=== PATIENT | female | born 1955 | race Caucasian/White ===

== ENCOUNTER 2019-12-17 09:28 | Day surgery (SDC) | payer MEDICARE, OTHER ==
[~2019-12-17 09:28] MED LIST: Sodium Chloride 0.9% 10 ML Syringe FLUSH PRN
[2019-12-17] MEDS ORDERED: Propofol 200 MG/20 ML SDV ONE ×2 (10:04→10:43)
[2019-12-17] MEDS: Lactated Ringers 1,000 ML IV SCH (10:26)
[2019-12-17] MEDS ORDERED: Lidocaine 2% 100 MG/5 ML Syringe ONE (10:43)
--- NOTE | 2019-12-17 10:49 | PCM.PN ---
- General Info Date of Service: 12/17/19 - Review of Systems Systems Review Comment:: 64-year-old female with history of epigastric pain and history of polyps here for EGD and colonoscopy. She is medically stable to proceed today. Her recent history and physical is reviewed. No significant changes are noted. I have discussed the proposed EGD and colonoscopy with the patient. Risks discussed. She agrees to proceed. - Patient Data Vitals - Most Recent: Last Vital Signs Temp 98.8 F 12/17/19 09:59 Pulse 71 12/17/19 09:59 Resp 18 12/17/19 09:59 BP 134/79 12/17/19 09:59 Pulse Ox 98 12/17/19 09:59 Weight - Most Recent: 74.843 kg Med Orders - Current: Current Medications Lactated Ringer's (Ringers, Lactated) 1,000 mls @ 125 mls/hr IV ASDIRECTED AILYN Last Admin: 12/17/19 10:26 Dose: 125 mls/hr Documented by: Sodium Chloride (Saline Flush) 10 ml FLUSH ASDIRECTED PRN PRN Reason: Keep Vein Open Discontinued Medications Propofol (Diprivan 20 Ml) Confirm Administered Dose 400 mg .ROUTE .STK-MED ONE Stop: 12/17/19 10:05 Sepsis Event Note - Focused Exam Vital Signs: Vital Signs Temp Pulse Resp BP Pulse Ox 12/17/19 09:59 98.8 F 71 18 134/79 98 Date Exam was Performed: 12/17/19 Time Exam was Performed: 10:48 - Problem List Review Problem List Initiated/Reviewed/Updated: Yes - Assessment Assessment:: Epigastric pain History of colon polyps - Plan Plan:: EGD and colonoscopy
--- NOTE | 2019-12-17 11:36 | PCM.OPNOTE ---
- General Post-Op/Procedure Note Date of Surgery/Procedure: 12/17/19 Operative Procedure(s): EGD with biopsy and colonoscopy with polypectomy Findings: Mild reflux esophagitis Benign-appearing gastric polyps Small transverse colon polyp Moderate sigmoid diverticulosis Pre Op Diagnosis: For abdominal pain and history of colon polyps Post-Op Diagnosis: Reflux esophagitis. Gastric polyps. Colon polyp. Sigmoid diverticulosis Anesthesia Technique: MAC Primary Surgeon: Naveen Carlson Pathology: Biopsies of gastric antrum and gastric polyps and GE junction Colon polyp EBL in mLs: 3 Complications: None Condition: Good
[2019-12-17 11:59] VITALS: PULSE 64
[2019-12-17 12:10] VITALS: BP 141/77
--- NOTE | 2019-12-17 17:26 | OR ---
Date of Procedure: 12/17/2019 PREOPERATIVE DIAGNOSIS: Upper abdominal pain and history of colon polyps. POSTOPERATIVE DIAGNOSES: 1. Reflux esophagitis. 2. Gastric polyps. 3. Colon polyp. 4. Sigmoid diverticulosis. OPERATION PERFORMED: Esophagogastroduodenoscopy with biopsy and colonoscopy with polypectomy. INDICATIONS FOR SURGERY: This 64-year-old female has a history of colon polyps. She has also been having some upper abdominal pain and is referred for EGD and colonoscopy. FINDINGS: The patient has a limited amount of irritation in the lower part of her esophagus just above the GE junction consistent with reflux esophagitis. There is no ulceration or exudate. In the lining of the stomach, the patient has multiple benign-appearing polyps primarily in the area of the body of the stomach. The antrum appears normal. The duodenum also appears normal. In the colon, the patient had a single 6 mm polyp noted in the distal transverse colon. She also has a moderate degree of diverticulosis in the sigmoid region. The remainder of the colon appeared normal. DESCRIPTION OF PROCEDURE: The patient was taken to the operating room. She was given intravenous sedation, and with her in the left lateral decubitus position, the Olympus gastroscope was advanced through a mouth guard into the oral cavity. Under direct visualization, the scope was advanced through the oropharynx with examination showing no visible abnormalities. The scope was advanced into the esophagus, stomach, and then into the duodenum, where examination to the third portion was performed. After examining the duodenum, the scope was withdrawn back into the stomach where full examination including retroflexed examination of the fundus was carried out. Random biopsies of the antrum were taken to rule out H. pylori. Machine Hoop Maker biopsies of the gastric polyps were taken to confirm their benign nature. After examining the stomach, the GE junction is also carefully examined and biopsies of this area are taken. The scope was removed and attention was turned to colonoscopy. Digital rectal exam was performed showing no rectal masses. The Olympus colonoscope was inserted into the rectum. Retroflexed examination of the rectal canal was performed. The scope was then carefully advanced under direct visualization through the entire length of the colon until the cecum was reached. Cecal acquisition was confirmed by noting the normal internal cecal anatomy including the appendiceal orifice and the ileocecal valve. The light was also noted to transilluminate the abdominal wall in the right lower quadrant. After examining the cecum, the scope was slowly withdrawn sequentially re-examining the colonic segments. In the distal transverse colon, the above-described polyp was identified. It was removed with a cautery snare and retrieved. The examination was then continued, and after the entire colon and rectum had been fully examined, the scope was removed, and the patient was taken from the operating room in satisfactory condition. ESTIMATED BLOOD LOSS: 3 mL. COMPLICATIONS: None. PROGNOSIS: Good. CATRACHO Carlson MD /[id number]
== END 2019-12-17 12:45 | disposition home or self-care (01) ==
LOC: LL.SDS 09:28
PROVIDERS: ATTEND Surgery
DX: Z12.11 Encounter for screening for malignant neoplasm of colon (principal); D12.3 Benign neoplasm of transverse colon; K21.0 Gastro-esophageal reflux disease with esophagitis; K31.7 Polyp of stomach and duodenum; K29.70 Gastritis, unspecified, without bleeding; K31.89 Other diseases of stomach and duodenum; K57.30 Diverticulosis of large intestine without perforation or abscess without bleeding; I51.89 Other ill-defined heart diseases; Z86.010 Personal history of colon polyps; Z98.890 Other specified postprocedural states; Z79.899 Other long term (current) drug therapy; Z88.0 Allergy status to penicillin
CPT/HCPCS: J2001; J2704; J7120